=== PATIENT | male | born 1935 | race Hispanic/Latino ===

== ENCOUNTER 2019-08-27 18:03 | Inpatient (IN) | payer MEDICARE ==
[~2019-08-27] VITALS: Ht 167.6 cm; Wt 63.5 kg
[2019-08-27 18:39] LABS: BASOPHILS % (AUTO) 0.8 % (0.0-5.0); EOSINOPHILS % (AUTO) 1.4 % (0.0-8.0); HEMATOCRIT 34.3 % (42-54); LYMPHOCYTES % (AUTO) 12.6 % (21.0-51.0); MEAN CORPUSCULAR HEMOGLOBIN 33.8 pg (27.0-33.0); MEAN CORPUSCULAR HGB CONC 33.8 g/dL (32.0-36.0); MEAN CORPUSCULAR VOLUME 99.9 fL (79-99); MONOCYTES % (AUTO) 8.6 % (3.0-13.0); NEUTROPHILS % (AUTO) 76.6 % (40.0-77.0); PLATELET COUNT (AUTO) 139 K/uL (130-400); RED BLOOD CELL COUNT(AUTO) 3.43 MIL/uL (4.50-6.20); RED CELL DISTRIBUTION WIDTH 15.7 % (11.0-15.5); WHITE BLOOD COUNT (AUTO) 6.3 K/uL (4.8-10.8)
[2019-08-27] MEDS ORDERED: ZOSYN 3.375GM+NS 50ML 50 ML IV ONE (18:56)
[2019-08-27 19:04] LABS: CREATININE 4.7 mg/dL (0.5-1.5); POTASSIUM 4.1 mmol/L (3.5-5.1)
[2019-08-27 19:15] LABS: INR 1.15 (0.85-1.15); PARTIAL THROMBOPLASTIN TIME 27.8 SEC (26.3-35.5)
[2019-08-27 19:15] LABS: ALBUMIN 3.1 g/dL (3.5-5.0); BILIRUBIN,TOTAL 0.8 mg/dL (0.2-1.0); TOTAL PROTEIN, SERUM 7.2 g/dL (6.0-8.3); TROPONIN I 0.06 ng/mL (0.00-0.06)
[2019-08-28] MEDS: SODIUM CHLORIDE 0.9% 1000ML 1,000 ML IV SCH ×2 (00:23→10:18)
[2019-08-28] MEDS ORDERED: ACETAMINOPHEN 325 MG TAB PO PRN ×2 (00:30)
[2019-08-28] MEDS ORDERED: ONDANSETRON HCL 4 MG/2 ML VIAL IV PRN (00:30)
[2019-08-28] MEDS ORDERED: VANCOMYCIN PROTOCOL PER PHARMACY IV PRN (00:30)
[2019-08-28] MEDS ORDERED: SODIUM CHLORIDE 0.9% 1000ML 1,000 ML IV ONE (00:42)
[2019-08-28] MEDS ORDERED: FAMOTIDINE/PF 20 MG/2 ML VIAL IV ONE (00:45)
[2019-08-28 04:55] LABS: HEMATOCRIT 34.8 % (42-54); LYMPHOCYTES % (AUTO) 15.8 % (21.0-51.0); MEAN CORPUSCULAR HEMOGLOBIN 33.5 pg (27.0-33.0); MEAN CORPUSCULAR HGB CONC 33.4 g/dL (32.0-36.0); MEAN CORPUSCULAR VOLUME 100.4 fL (79-99); MONOCYTES % (AUTO) 8.7 % (3.0-13.0); NEUTROPHILS % (AUTO) 72.5 % (40.0-77.0); PLATELET COUNT (AUTO) 112 K/uL (130-400); RED BLOOD CELL COUNT(AUTO) 3.47 MIL/uL (4.50-6.20); RED CELL DISTRIBUTION WIDTH 15.5 % (11.0-15.5)
[2019-08-28 05:07] LABS: ALBUMIN 2.8 g/dL (3.5-5.0); BILIRUBIN,TOTAL 0.9 mg/dL (0.2-1.0); CREATININE 5.1 mg/dL (0.5-1.5); POTASSIUM 4.3 mmol/L (3.5-5.1); TOTAL PROTEIN, SERUM 6.8 g/dL (6.0-8.3)
[2019-08-28 07:30] VITALS: BP 147/77
[2019-08-28 08:00] VITALS: BP 131/56
[2019-08-28] MEDS ORDERED: FAMOTIDINE/PF 20 MG/2 ML VIAL IV SCH (09:00)
[2019-08-28] MEDS: ENOXAPARIN SODIUM 30 MG/0.3 ML SQ SCH (10:13)
[2019-08-28] MEDS: FAMOTIDINE 20MG TAB 20 MG TAB PO SCH ×2 (10:13→21:06)
[2019-08-28] MEDS ORDERED: PHOSLOC PO (10:18)
[2019-08-28] MEDS ORDERED: METO50TA18 PO (10:18)
[2019-08-28] MEDS ORDERED: VANCOMYCIN 1GM+NS 250ML 250 ML IV SCH (10:45)
[2019-08-28 11:24] VITALS: BP 121/54
--- NOTE | 2019-08-28 11:30 | NUR ---
JAME Campbell visited with patient and spoke to family, orders to cancel consult with Dr Boss and proceed with consult with Dr Abarca crown ironer operator with Dr Pugh. Called placed to Dr Abarca answering service
[2019-08-28] MEDS ORDERED: CALCIUM ACETATE 667 MG CAPSULE PO SCH (12:00)
[2019-08-28] MEDS ORDERED: ARTIFICAL TEARS SOL 15 ML OU PRN (14:15)
[2019-08-28 16:00] VITALS: BP 124/60
[2019-08-28] MEDS ORDERED: HEPARIN SODIUM 5000UNIT/ML 1ML VIAL SQ PRN (16:45)
[2019-08-28] MEDS ORDERED: CLOPIDOGREL BISULFATE 75 MG TAB PO STA (18:20)
[2019-08-28] MEDS ORDERED: NITROGLYCERIN 1GM/1 INCH PACKET TD STA (18:20)
[2019-08-28 20:00] VITALS: BP 135/69
[2019-08-28] MEDS: INSULIN HUMULIN R 100 UNIT/ML 3ML SQ SCH (21:00)
[2019-08-28] MEDS: NITROGLYCERIN 1GM/1 INCH PACKET TD SCH (21:06)
[2019-08-28] MEDS: METOPROLOL TARTRATE 25 MG TAB PO SCH (21:06)
[2019-08-28 23:40] VITALS: BP 110/53
[2019-08-29 03:52] VITALS: BP 120/53
[2019-08-29 05:17] LABS: HEMATOCRIT 31.4 % (42-54); MEAN CORPUSCULAR HEMOGLOBIN 34.3 pg (27.0-33.0); MEAN CORPUSCULAR HGB CONC 34.6 g/dL (32.0-36.0); MEAN CORPUSCULAR VOLUME 98.9 fL (79-99); PLATELET COUNT (AUTO) 120 K/uL (130-400); RED BLOOD CELL COUNT(AUTO) 3.17 MIL/uL (4.50-6.20); RED CELL DISTRIBUTION WIDTH 15.4 % (11.0-15.5); WHITE BLOOD COUNT (AUTO) 5.8 K/uL (4.8-10.8)
[2019-08-29 05:40] LABS: BASOPHILS % (MANUAL) 2 % (0-2); CREATININE 4.1 mg/dL (0.5-1.5); EOSINOPHILS % (MANUAL) 1 % (1-6); LYMPHOCYTES % (MANUAL) 12 % (22-44); MONOCYTES % (MANUAL) 8 % (2-9); PHOSPHORUS 4.3 mg/dL (2.5-4.9); SEGMENTED NEUTROPHILS % 77 % (40-70); THYROID STIMULATING HORMONE 1.34 uIU/mL (0.36-3.74)
[2019-08-29 05:41] LABS: MAN.DIFF COMMENT-IMPRESSION MANUAL DIF
[2019-08-29 05:42] LABS: PLATELET MORPHOLOGY COMMENT SLIGHTLY DECREASED
[2019-08-29 07:00] VITALS: BP 128/54
[2019-08-29] MEDS: INSULIN HUMULIN R 100 UNIT/ML 3ML SQ SCH ×4 (07:29→20:59)
[2019-08-29] MEDS: CLOPIDOGREL BISULFATE 75 MG TAB PO SCH (09:33)
[2019-08-29] MEDS: FAMOTIDINE 20MG TAB 20 MG TAB PO SCH ×2 (09:33→22:11)
[2019-08-29] MEDS: METOPROLOL TARTRATE 25 MG TAB PO SCH ×2 (09:33→22:11)
[2019-08-29] MEDS: FOLIC ACID/VITAMIN B COMP W-C 1 MG CAP/TAB PO SCH (09:33)
[2019-08-29] MEDS: NITROGLYCERIN 1GM/1 INCH PACKET TD SCH ×2 (09:34→22:11)
[2019-08-29] MEDS: ENOXAPARIN SODIUM 30 MG/0.3 ML SQ SCH (09:34)
[2019-08-29 11:00] VITALS: BP 124/51
--- NOTE | 2019-08-29 13:46 | NUR ---
CM note met with patient pt with hx of RT. LIBERTAD uses prosthesis and states lives with spouse, and uses walker and w/c, no provider pt. is able to do own bath, and adls. states ks plan is back to same home setting at ks. Addendum: 08/29/19 at 1354 by YEE VILA CM Amended: Links added.
[2019-08-29 16:00] VITALS: BP 128/56
[2019-08-29 19:09] VITALS: BP 127/56
[2019-08-29 23:12] VITALS: BP 117/52
[2019-08-30] VITALS (12 sets, daily range): BP systolic 114–152; BP diastolic 45–78
[2019-08-30 05:56] LABS: CREATININE 5.5 mg/dL (0.5-1.5); POTASSIUM 4.2 mmol/L (3.5-5.1)
[2019-08-30 05:57] LABS: HEMATOCRIT 33.1 % (42-54); MEAN CORPUSCULAR HEMOGLOBIN 33.8 pg (27.0-33.0); MEAN CORPUSCULAR HGB CONC 33.9 g/dL (32.0-36.0); MEAN CORPUSCULAR VOLUME 99.8 fL (79-99); PLATELET COUNT (AUTO) 126 K/uL (130-400); RED BLOOD CELL COUNT(AUTO) 3.32 MIL/uL (4.50-6.20); RED CELL DISTRIBUTION WIDTH 15.7 % (11.0-15.5); WHITE BLOOD COUNT (AUTO) 6.3 K/uL (4.8-10.8)
[2019-08-30 06:23] LABS: LYMPHOCYTES % (MANUAL) 12 % (22-44); MONOCYTES % (MANUAL) 5 % (2-9); SEGMENTED NEUTROPHILS % 83 % (40-70)
[2019-08-30 06:24] LABS: MAN.DIFF COMMENT-IMPRESSION MANUAL DIFFERENTIAL
[2019-08-30 06:25] LABS: PLATELET MORPHOLOGY COMMENT SLIGHTLY DECREASED
[2019-08-30] MEDS: INSULIN HUMULIN R 100 UNIT/ML 3ML SQ SCH ×4 (06:33→21:00)
[2019-08-30 07:21] LABS: INR 1.18 (0.85-1.15); PARTIAL THROMBOPLASTIN TIME 27.4 SEC (26.3-35.5); PROTHROMBIN TIME 12.1 SEC (9.6-11.6)
[2019-08-30] MEDS: ENOXAPARIN SODIUM 30 MG/0.3 ML SQ SCH (09:00)
[2019-08-30] MEDS: FOLIC ACID/VITAMIN B COMP W-C 1 MG CAP/TAB PO SCH (09:36)
[2019-08-30] MEDS: FAMOTIDINE 20MG TAB 20 MG TAB PO SCH ×2 (09:36→21:24)
[2019-08-30] MEDS: CLOPIDOGREL BISULFATE 75 MG TAB PO SCH (09:37)
[2019-08-30] MEDS: NITROGLYCERIN 1GM/1 INCH PACKET TD SCH ×2 (09:37→21:26)
[2019-08-30] MEDS: METOPROLOL TARTRATE 25 MG TAB PO SCH ×2 (09:38→21:24)
[2019-08-30] MEDS ORDERED: SODIUM CHLORIDE 0.9% 1000ML 1,000 ML IV SCH ×2 (10:23→13:47)
[2019-08-30] MEDS ORDERED: DiphenhydrAMINE HCL 50 MG/ML VIAL IVP PRN (10:30)
--- NOTE | 2019-08-30 11:43 | NUR ---
CATHLAB PATIENT TAKEN TO CATHLAB AT THIS TIME. PREOP BENADRYL 25MG IVP GIVEN PRIOR TO BEING TAKEN TO CATHLAB ORDERED BY DR ABRAMS. PATIENTS SON IS AT BEDSIDE.
[2019-08-30] MEDS ORDERED: NITROGLYCERIN 5 MG/ML 10 ML VIAL IV ONE (11:46)
[2019-08-30] MEDS ORDERED: HEPARIN SODIUM 1000UNIT/ML 10ML VIAL ONE (11:46)
[2019-08-30] MEDS ORDERED: LIDOCAINE HCL 2% 20ML ONE (11:47)
[2019-08-30] MEDS ORDERED: IODIXANOL 320 MG/ML 100 ML VIAL ONE ×2 (11:47→13:09)
[2019-08-30] MEDS ORDERED: MIDAZOLAM HCL 1 MG/ML 2ML VIAL ONE (12:04)
[2019-08-30] MEDS ORDERED: FENTANYL CITRATE PF 50 MCG/1 ML 2ML VIAL ONE (12:05)
[2019-08-30] MEDS ORDERED: ASPIRIN 325MG EC TAB 325 MG TABLET.DR PO ONE (13:42)
[2019-08-30] MEDS ORDERED: TICAGRELOR 90 MG TABLET ONE (13:42)
--- NOTE | 2019-08-30 15:55 | NUR ---
RIGHT FEMORAL SITE BLEEDING HELD MANUAL PRESSURE TO RIGHT FEMORAL SITE. PATIENT IS LYING FLAT AT THIS TIME. VITAL SIGNS STABLE. PATIENT IS AAOX3. CALLED CHARGE NURSE MARTIN LYNNE TO HELP. DR ABRAMS MADE AWARE NO ORDERS GIVEN. CONTINUE TO HOLD MANUAL PRESSURE TO SITE.
--- NOTE | 2019-08-30 22:58 | NUR ---
NOTE AT 2240 PATIENT BEGAN TO BLEED FROM RIGHT GROIN HE GOT UP TO USE BATHROOM. APPLIED PRESSURE TO SITE. GOT HIM BACK TO BED AND CONTINUED WITH PRESSURE. ANOTHER NURSE (CARLOS) SPOKE TO 2ND FLOOR NURSE (NADIRA) AND WENT TO GET A REPLACEMENT D-STAT AND WAS APPLIED. NO ACTIVE OOZING NOTED FROM SITE ONCE PRESSURE RELEASED AT TIME OF APPLYING THE D-STAT. PAGED DR. ABRAMS TO NOTIFY VIA ANSWERING SERVICE.
--- NOTE | 2019-08-30 23:12 | NUR ---
NOTE INFORMED DR. ABRAMS OF BLEED OCCURRANCE AND ACTIONS TAKEN. HE SAID TO KEEP PATIENT BEDREST FOR NOW AND TO APPLY PRESSURE NECESSARY TO CONTROL BLEED. INFORMED PATIENT.
[2019-08-30] MEDS ORDERED: TICAGRELOR 90 MG TABLET PO SCH (23:30)
--- NOTE | 2019-08-31 00:30 | NUR ---
NOTE PATIENT'S DAUGHTER HAD SAID SHE WOULD CALL TO CHECK ON PATIENT BEFORE SHE WOULD GO TO SLEEP, BUT SHE HAS NOT. I WENT AHEAD AND CALLED HER ON THE NUMBER SHE LEFT ME AND TOLD HER ABOUT BLEED EPISODE AND ORDERS FROM MD FOR CONTINUED BEDREST. ALSO SHE INQUIRED ABOUT HIM COMPLETING HIS DINNER, WHICH HE DID FINISH EATING HIS DINNER A FEW MINUTES AFTER PATIENT'S AND DAUGHTER LEFT.
[2019-08-31 03:03] VITALS: BP 155/74
[2019-08-31 04:35] LABS: HEMATOCRIT 34.1 % (42-54); MEAN CORPUSCULAR HEMOGLOBIN 34.2 pg (27.0-33.0); MEAN CORPUSCULAR HGB CONC 34.1 g/dL (32.0-36.0); MEAN CORPUSCULAR VOLUME 100.4 fL (79-99); PLATELET COUNT (AUTO) 142 K/uL (130-400); RED CELL DISTRIBUTION WIDTH 15.5 % (11.0-15.5); WHITE BLOOD COUNT (AUTO) 8.3 K/uL (4.8-10.8)
--- NOTE | 2019-08-31 04:38 | NUR ---
NOTE PATIENT HAS HAD 4-5 SOFT FORMED BM'S DURING MY SHIFT. LAST ONE WAS SMALL. WAS HAVING CRAMPING EARLIER, BUT WAS RELIEVED WITH WARM PACKS TO ABDOMEN. CONTACTED HOSPITALIST CARITO FLORES NP. ORDERED ONE DOSE OF SIMETHACONE. NOTIFIED PATIENT.
[2019-08-31] MEDS ORDERED: SIMETHICONE 80 MG TAB.CHEW PO ONE (04:45)
[2019-08-31 04:46] LABS: INR 1.23 (0.85-1.15); PARTIAL THROMBOPLASTIN TIME 28.9 SEC (26.3-35.5); PROTHROMBIN TIME 12.8 SEC (9.6-11.6)
[2019-08-31 04:52] LABS: CREATININE 6.8 mg/dL (0.5-1.5); POTASSIUM 4.4 mmol/L (3.5-5.1)
[2019-08-31 05:09] LABS: EOSINOPHILS % (MANUAL) 3 % (1-6); LYMPHOCYTES % (MANUAL) 11 % (22-44); MAN.DIFF COMMENT-IMPRESSION MANUAL DIFFERENTIAL; MONOCYTES % (MANUAL) 3 % (2-9); SEGMENTED NEUTROPHILS % 83 % (40-70)
[2019-08-31 05:10] LABS: HEPATITIS A ANTIBODY IGM Negative (Negative); HEPATITIS B CORE IGM Negative (Negative); HEPATITIS Bs ANTIGEN SCREEN P Negative (Negative)
[2019-08-31 05:10] LABS: PLATELET MORPHOLOGY COMMENT ADEQUATE
[2019-08-31] MEDS: INSULIN HUMULIN R 100 UNIT/ML 3ML SQ SCH ×3 (05:53→16:07)
--- NOTE | 2019-08-31 06:55 | NUR ---
ROUNDS DR. BAI MAKING ROUNDS. SAW PATIENT. REPORT GIVEN. NO FURTHER EPISODES OF BLEED TONIGHT (ONLY THE 2). SAID HE WILL BE POSSIBLE DISCHARGE TODAY AFTER DIALYSIS PENDING HER CHECKING WITH DR. ABRAMS AND REVIEWING LABS.
[2019-08-31 08:00] VITALS: BP 151/65
[2019-08-31] MEDS: METOPROLOL TARTRATE 25 MG TAB PO SCH ×2 (09:00→20:51)
[2019-08-31] MEDS ORDERED: SILVER SULFADIAZINE CREAM 50 GM TP SCH (09:00)
[2019-08-31] MEDS: FAMOTIDINE 20MG TAB 20 MG TAB PO SCH ×2 (09:00→20:51)
[2019-08-31 11:31] VITALS: BP 130/48
[2019-08-31 16:00] VITALS: BP 134/60
[2019-08-31] MEDS: ASPIRIN 81MG TAB.CHEW PO SCH (16:19)
[2019-08-31] MEDS: CLOPIDOGREL BISULFATE 75 MG TAB PO SCH (16:19)
[2019-08-31] MEDS: NITROGLYCERIN 1GM/1 INCH PACKET TD SCH ×2 (16:20→20:51)
[2019-08-31] MEDS: FOLIC ACID/VITAMIN B COMP W-C 1 MG CAP/TAB PO SCH (16:24)
[2019-08-31 19:30] VITALS: BP 139/43
--- NOTE | 2019-08-31 21:22 | NUR ---
NOTE RECEIVED CALL FROM PATIENT'S DAUGHTER MRS MOBLEY. SHE WANTED TO REPORT THAT DURING THEIR VISIT TODAY SHE NOTICED THAT PATIENT SEEMED TO HAVE SOME SLURRING IN HIS SPEECH AND THAT THAT IS NOT NORMAL FOR HIM. WENT TO CHECK PATIENT. DID NEURO CHECK AND EXPLAINED TO HIM HIS DAUGHTERS CONCERNS. ASKED HIM IF HE NOTICED ANYTHING DIFFERENT ON HIMSELF OR HIS SPEECH AND HE SAYS NO. HE APPEARS TO BE ORIENTED, AWARE OF ENVIRONMENT AND SITUATION. ABLE TO RESPOND APPROPRIATELY. DID NOTICE A LITTLE SLURRING OF WORDS AT FIRST, BUT I HAD JUST WOKE HIM UP FROM SLEEP AND THEN WORDS WERE CLEARER. PAGED HOSPITALIST TO NOTIFY FOR FURTHER INSTRUCTIONS. Kiya FLORES NP RETURNED CALL AND SAID TO NEURO CHECKS AND IF HE HAS CHANGES FROM BASE LINE, THEN DO A CT OF HEAD. UPDATED PATIENT AND THEN UPDATED DAUGHTER MRS MOBLEY LATER ON OVER THE PHONE SHE PROVIDED SHE REQUESTED ABOUT INSTRUCTIONS.
[2019-08-31 23:03] VITALS: BP 126/54
[2019-09-01 03:26] VITALS: BP 131/57
[2019-09-01 05:13] LABS: BASOPHILS % (AUTO) 0.6 % (0.0-5.0); EOSINOPHILS % (AUTO) 0.4 % (0.0-8.0); HEMATOCRIT 32.6 % (42-54); LYMPHOCYTES % (AUTO) 9.2 % (21.0-51.0); MEAN CORPUSCULAR HEMOGLOBIN 33.8 pg (27.0-33.0); MEAN CORPUSCULAR VOLUME 99.3 fL (79-99); MONOCYTES % (AUTO) 11.7 % (3.0-13.0); NEUTROPHILS % (AUTO) 78.1 % (40.0-77.0); PLATELET COUNT (AUTO) 126 K/uL (130-400); RED BLOOD CELL COUNT(AUTO) 3.29 MIL/uL (4.50-6.20); RED CELL DISTRIBUTION WIDTH 15.7 % (11.0-15.5); WHITE BLOOD COUNT (AUTO) 8.2 K/uL (4.8-10.8)
[2019-09-01 05:34] LABS: CREATININE 5.4 mg/dL (0.5-1.5); POTASSIUM 4.5 mmol/L (3.5-5.1)
[2019-09-01] MEDS: INSULIN HUMULIN R 100 UNIT/ML 3ML SQ SCH ×2 (06:18→11:30)
--- NOTE | 2019-09-01 07:30 | NUR ---
NOTE AAOX3. DENIES PAIN OR DISCOMFORT. S/P LEFT LEG ANGIOGRAPHY AND ANGIOPLASTY PROCEDURES AND ACCORDING TO REPORTS CIRCULATION TO DISTAL LLE WAS IMPROVED. LEFT FOOT PEDAL PULSE VERY WEAK BUT PALPABLE. FOOT WARM TO TOUCH AND SMALL DRESSINGS TO LEFT FIFTH TOE AND LEFT THIRD TOE. WILL CHANGE DRESSINGS LATER PRIOR TO DC AND TAKE PICTURES FOR HE IS POSSIBLE DISCHARGING TODAY. PENDING PLACEMENT.
[2019-09-01 08:08] VITALS: BP 124/61
[2019-09-01] MEDS: FOLIC ACID/VITAMIN B COMP W-C 1 MG CAP/TAB PO SCH (08:44)
[2019-09-01] MEDS: METOPROLOL TARTRATE 25 MG TAB PO SCH (08:44)
[2019-09-01] MEDS: ASPIRIN 81MG TAB.CHEW PO SCH (08:44)
[2019-09-01] MEDS: FAMOTIDINE 20MG TAB 20 MG TAB PO SCH (08:44)
[2019-09-01] MEDS: CLOPIDOGREL BISULFATE 75 MG TAB PO SCH (08:44)
[2019-09-01] MEDS: NITROGLYCERIN 1GM/1 INCH PACKET TD SCH (08:45)
[2019-09-01 11:17] VITALS: BP 126/51
--- NOTE | 2019-09-01 15:00 | NUR ---
RD NOTIFICATION DIET: 75GMCCD. PO INTAKE 75% AND HAS GOOD APPETITE PER PT. NO DIFFICULTY CHEWING OR SWALLOWING FOOD AT THIS TIME. LBM: 08/31. NO NAUSEA, EMESIS, OR DIARRHEA AT THIS TIME. PT HAS SEEN A DIETITIAN IN THE PAST REGARDING DIETARY RECOMMENDATIONS REGARDING DM AND DIALYSIS. PT STATED THAT COOKS FOR PT AT HOME ACCORDING TO DIETARY RECOMMENDATIONS. PT ON DIALYSIS FOR MANY YEARS NOW AND KNOWS WHAT TO EAT. RD RECOMMENDS CONTINUE CURRENT DIET, ADD RENAL DIALYSIS TO DIET ORDER. RD WILL CONTINUE TO MONITOR AND FOLLOW UP NEEDED. Addendum: 09/01/19 at [address] Amended: Links added.
--- NOTE | 2019-09-01 16:45 | NUR ---
NOTE DRESSINGS TO LEFT FOOT DONE AT THIS TIME. REFER TO CHART FOR DETAILS. PICTURES OF WOUNDS TAKEN. PATIENT TOLERATED WITHOUT PROBLEMS. SPOKE TO DR WOODSON AND HE GAVE ORDERS TO ADD STATIN THERAPY TO DC HOME MEDS FOR ACCORDING TO DR ABRAMS'S RECOMMENDATIONS HE IS SUPPOSED TO BE O ASPIRIN, PLAVIX AND STATIN.
--- NOTE | 2019-09-01 17:00 | NUR ---
NOTE DISCHARGE INSTRUCTIONS GIVEN TO PATIENT AND DAUGHTER AT HIS SIDE. REPORT CALLED TO STAFF AT [facility]. PATIENT WILL BE TRANSPORTED VIA PRIVATE TRANSPORT PROVIDED BY [facility].
== END 2019-09-01 18:40 | DRG 270 ==
LOC: EDH 18:03 → EDHIP 23:28 → 4BH 08-28 07:51
PROVIDERS: ADMIT Internal Medicine; ATTEND Internal Medicine
PROC: 5A1D70Z Performance of Urinary Filtration, Intermittent, Less than 6 Hours Per Day (ICD-10-PCS; principal; 2019-08-28)
PROC: 04CQ3ZZ Extirpation of Matter from Left Anterior Tibial Artery, Percutaneous Approach (ICD-10-PCS; 2019-08-30)
PROC: 04CL3ZZ Extirpation of Matter from Left Femoral Artery, Percutaneous Approach (ICD-10-PCS; 2019-08-30)
PROC: 04CN3ZZ Extirpation of Matter from Left Popliteal Artery, Percutaneous Approach (ICD-10-PCS; 2019-08-30)
PROC: 047Q3ZZ Dilation of Left Anterior Tibial Artery, Percutaneous Approach (ICD-10-PCS; 2019-08-30)
PROC: 047N3Z1 Dilation of Left Popliteal Artery using Drug-Coated Balloon, Percutaneous Approach (ICD-10-PCS; 2019-08-30)
PROC: 047L3Z1 Dilation of Left Femoral Artery using Drug-Coated Balloon, Percutaneous Approach (ICD-10-PCS; 2019-08-30)
PROC: B41D1ZZ Fluoroscopy of Aorta and Bilateral Lower Extremity Arteries using Low Osmolar Contrast (ICD-10-PCS; 2019-08-30)
PROC: 5A1D70Z Performance of Urinary Filtration, Intermittent, Less than 6 Hours Per Day (ICD-10-PCS; 2019-08-31)
DX: E11.52 Type 2 diabetes mellitus with diabetic peripheral angiopathy with gangrene (principal); N18.6 End stage renal disease; M86.9 Osteomyelitis, unspecified; L03.116 Cellulitis of left lower limb; E44.0 Moderate protein-calorie malnutrition; I12.0 Hypertensive chronic kidney disease with stage 5 chronic kidney disease or end stage renal disease; I70.92 Chronic total occlusion of artery of the extremities; E11.621 Type 2 diabetes mellitus with foot ulcer; E11.21 Type 2 diabetes mellitus with diabetic nephropathy; E11.22 Type 2 diabetes mellitus with diabetic chronic kidney disease; E11.610 Type 2 diabetes mellitus with diabetic neuropathic arthropathy; L97.529 Non-pressure chronic ulcer of other part of left foot with unspecified severity; I25.10 Atherosclerotic heart disease of native coronary artery without angina pectoris; E78.5 Hyperlipidemia, unspecified; D64.9 Anemia, unspecified; E11.69 Type 2 diabetes mellitus with other specified complication; I99.8 Other disorder of circulatory system; Z68.22 Body mass index [BMI] 22.0-22.9, adult; Z79.4 Long term (current) use of insulin; Z89.511 Acquired absence of right leg below knee; Z95.0 Presence of cardiac pacemaker; Z95.1 Presence of aortocoronary bypass graft
CPT/HCPCS: 36415; 37225; 37229; 71045; 73630; 73700; 75710; 75774; 80048; 80053; 80074; 80202; 82550; 82948; 83605; 83735; 83874; 84100; 84145; 84443; 84484; 84550; 85025; 85347; 85610; 85730; 87040; 87070; 87076; 90935; 93005; 93926; 97039; 99156; 99157; C1725; C1769; C1893; C1894; G0378; J1200; J1644; J1650; J2250; J2543; J3010; J3370; J3490; J7030; Q9967